=== PATIENT | female | born 1985 | race Caucasian/White ===

== ENCOUNTER 2019-11-21 07:34 | Emergency (ER) | payer OTHER ==
[2019-11-21 07:59] VITALS: BP 130/78
--- NOTE | 2019-11-21 08:33 | ED ---
Throat Pain/Nasal Congestion - HPI Summary HPI Summary: 33 yo p/w nasal congestion and post nasal drip x 4 days associated with sinus pressure. Denes f/c, sore throat, has minimal cough so far. Tried OTC cold meds but still draining. - History of Current Complaint Chief Complaint: UCGeneralIllness Time Seen by Provider: 11/21/19 08:21 Hx Obtained From: Patient Onset/Duration: Sudden Onset Severity: Moderate Associated Signs And Symptoms: Positive: Negative Cough: Nonproductive - Epiglottits Risk Factors Epiglottis Risk Factors: Negative - Allergies/Home Medications Allergies/Adverse Reactions: Allergies Allergy/AdvReac Type Severity Reaction Status Date / Time No Known Allergies Allergy Verified 11/21/19 07:58 Home Medications: Home Medications Ascorbic Acid [Vitamin C] 1 tab PO DAILY 11/21/19 [History Confirmed 11/21/19] Cholecalciferol (Vitamin D3) [Vitamin D3] 1 tab PO DAILY 11/21/19 [History Confirmed 11/21/19] Multivitamin [Multivitamins] 1 tab PO DAILY 11/21/19 [History Confirmed 11/21/19 ] Norgestimate-Ethinyl Estradiol [Sprintec 28 Day Tablet] 1 tab PO DAILY 11/21/19 [History Confirmed 11/21/19] [place]-3 Fatty Acids/Fish Oil [Fish Oil 1,000 mg Softgel] 1 tab PO DAILY [History Confirmed 11/21/19] Vitamin E 1 tab PO DAILY 11/21/19 [History Confirmed 11/21/19] PMH/Surg Hx/FS Hx/Imm Hx Previously Healthy: Yes - Surgical History Surgery Procedure, Year, and Place: knee surgery x4. wisdom teeth Infectious Disease History: No Infectious Disease History: Denies: Traveled Outside the [place] in Last 30 Days - Family History Known Family History: Positive: Non-Contributory - Social History Alcohol Use: Occasionally Substance Use Type: Reports: None Smoking Status (MU): Never Smoked Tobacco Review of Systems Constitutional: Negative Eyes: Negative Positive: Nasal Discharge, Other - sinus pain Cardiovascular: Negative Respiratory: Negative Gastrointestinal: Negative Genitourinary: Negative Musculoskeletal: Negative Skin: Negative Neurological: Negative Psychological: Normal All Other Systems Reviewed And Are Negative: Yes Physical Exam - Summary Physical Exam Summary: Vital Signs Reviewed: Yes Eye Exam: Normal Eyes: Positive: Conjunctiva Clear ENT: Positive: Nasal congestion Neck: Positive: Supple Respiratory Exam: Normal Respiratory: Positive: Lungs clear, Normal breath sounds. Cardiovascular Exam: Normal Cardiovascular: Positive: RRR Abdomen: NT/ND Musculoskeletal Exam: Normal Neurological Exam: Normal Psychological Exam: Normal Skin Exam: Normal Vital Signs On Initial Exam: Initial Vitals Temp Pulse Resp BP Pulse Ox 37.0 C 89 18 130/78 97 11/21/19 07:49 11/21/19 07:49 11/21/19 07:49 11/21/19 07:49 11/21/19 07:49 Diagnostics - Vital Signs Vital Signs Temp Pulse Resp BP Pulse Ox 11/21/19 07:49 37.0 C 89 18 130/78 97 - Laboratory Lab Statement: Any lab studies that have been ordered have been reviewed, and results considered in the medical decision making process. EENT Course/Dx - Diagnoses Provider Diagnoses: Nasal sinus congestion Discharge ED - Sign-Out/Discharge Documenting (check all that apply): Patient Departure All imaging exams completed and their final reports reviewed: No Studies - Discharge Plan Condition: Stable Disposition: HOME Prescriptions: Brompheniramine/Pseudoephed/Dm [Bromfed Dm Cough Syrup] 10 ml PO TID PRN 7 Days #1 bottle PRN Reason: Cough Fexofenadine/Pseudoephedrine [Fexofenadine-Pse ER 60-120 Tab] 1 each PO BID 10 Days #20 tab.er.[id number] Patient Education Materials: Antihistamine/Decongestant (By mouth), Rhinosinusitis (ED) - Billing Disposition and Condition Condition: STABLE Disposition: Home
== END 2019-11-21 08:30 | disposition home or self-care (01) ==
LOC: UCEAST 07:34
DX: R09.81 Nasal congestion (principal)
CPT/HCPCS: 99202; G0463